=== PATIENT | female | born 1965 | race African-American/Black ===

== ENCOUNTER 2025-01-31 05:40 | Observation (INO) ==
--- NOTE | 2025-01-31 06:47 | Emergency Department Note ---
HPI - Abdominal Pain General Chief Complaint: Back Pain/Injury Stated Complaint: POSSIBLE KIDNEY STONE Source: patient, family () and medical record Mode of arrival: walk-in History of Present Illness HPI narrative: A 59-year-old who came in Friday with a week long history of back pain has been persistent since then and for the last 2 days has been going around to the other side of the lower back and around into her stomach, moving all around she says gets sharp shooting pains periodically has not had a bowel movement in over 2 weeks she states. No difficulty with urination no new vomiting does get nauseous at times currently not nauseated. Denies any fever, chills, ill contacts denies lifting anything heavy. Related Data Previous Rx's Medication Instructions Recorded ketorolac 10 mg tablet 10 mg PO Q8H PRN pain 4 days #12 01/28/25 tabs tizanidine 2 mg capsule 2 mg PO TID PRN muscle spast icity 01/28/25 #9 caplets Allergies Allergy/AdvReac Type Severity Reaction Status Date / Time acetaminophen (From Tylenol) Allergy Unknown Verified 01/31/25 06:02 Review of Systems Status of ROS 10 or more systems reviewed and unremark able except as noted in history and below Constitutional Reports: malaise and change in sleep pattern (secondary to pain); Denies: fever, chills, change in weight, fatigue or night sweats Eyes Denies: change in vision, blurry vision or light sensitivity Ears, nose, mouth, and throat Denies: throat pain, neck pain, throat swelling, difficulty swallowing, hoarseness, mouth pain, swelling of lips/tongue or dry mouth Cardiovascular Denies: chest pain, palpitations, edema, swelling of feet/ankles, lightheadedness or shortness of breath with exertion Respiratory Denies: shortness of breath, cough, wheezing, stridor, pain on inspiration or change in phlegm color Gastrointestinal Reports: abdominal pain, nausea, constipation, feeling full early and change in bowel habits; Denies: vomiting, coffee grounds in vomit, heartburn, diarrhea, bloating, belching or excessive passing of gas Genitourinary Reports: urinary incontinence; Denies: painful urination, urinary frequency, urinary urgency, blood in urine or difficulty voiding Musculoskeletal Reports: back pain and extremity pain (left knee, left ankle); Denies: neck pain, extremity swelling, joint pain, limited range of motion or joint swelling Integumentary/Breast Denies: rash, itching, redness, skin pain, skin tenderness, skin swelling, sores, new lesion, changing lesion or non-healing lesion Neurological Denies: headache, numbness in extremities, weakness in extremities, lack of coordination, dizziness, vertigo or confusion Psychiatric Denies: anxiety, mood swings, panic attacks, change in sleep pattern, hopelessness, loss of interest, irritability, paranoia, memory loss, difficulty concentrating, visual hallucinations, auditory hallucinations, tactile hallucinations, suicidal ideation or homicidal ideation Endocrine Denies: excessive urination, excessive thirst, fatigue, cold intolerance, excessive sweating, flushing, heat intolerance, deepening of the voice or change in body appearance Hematologic/Lymphatic Denies: easy bruising, easy bleeding or enlarged lymph nodes Allergic/Immunologic Denies: hives, throat swelling, tongue swelling, facial swelling, wheezing or itchy eyes PFSH PFSH Medical History Breast cancer HTN (hypertension) Surgical History History of hysterectomy Social History Smoking status: never smoker What is your current living situation: I presently have a place to live Feel stressed/tense/nervous/anxious/difficulty sleeping: to some extent Life stressor details: back and abdominal pain Exam Constitutional: normal general appearance, no apparent distress (appears to be extremely uncomfortable while sitting upright or with any mov), abnormal body habitus (overweight), no limitations and alert Vital Signs - 24 hr 01/31/25 05:52 Pulse Rate 78 Respiratory Rate 17 Blood Pressure 108/76 Pulse Oximetry 100 Oxygen Delivery Me thod Room Air HENMT: normocephalic, head/scalp atraumatic, hearing grossly normal bilaterally, external ears normal, EACs normal, TMs abnormal, nasal mucous membranes normal, external nose normal, oral mucous membranes abnormal and oropharynx abnormal Eyes: PERRL, EOMs intact bilaterally, conjunctivae normal, no scleral icterus, papilledema noted and periorbital findings normal Neck/C-Spine: trachea midline, cervical spine nontender, cervical full ROM noted, supple, no meningeal signs, thyroid normal and no carotid bruits Lymph: no lymphadenopathy noted and no lymphedema noted Chest: inspection of chest normal and palpation of chest normal Respiratory: breath sounds equal bilaterally, normal respiratory effort, clear to auscultation bilaterally, no wheezes, no rales, no retractions and no use of accessory muscles Cardiovascular: normal heart rate noted, regular rhythm noted, no gallop, no murmur, no JVD, no clicks and peripheral pulses 2+ throughout Gastrointestinal: abdomen abnormal to inspection, abdomen soft to palpation, tender to palpation, tender to percussion, distended, abnormal bowel sounds noted (hyperactive bowel sounds), hepatosplenomegaly noted, no masses, no pulsatile mass, no ascites and no hernia Genitourinary: no CVA tenderness and bladder normal to palpation Back/Pelvis: spine abnormal to inspection, no thoracic spine tenderness, no lumbar spine tenderness, no paraspinal muscle tenderness noted (left lumbar) and straight leg raise negative bilaterally moderate to severe tenderness noted to the thoracic and lumbar spine without radiation into the lower extremities. No urinary issues, saddle parathesia, or other symptoms reported. The paraspinal muscle are extremely tender to palpation with the left greater than right. 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 Psychiatry: Mental Status Exam documented within this Exam's Psych section mental status grossly normal, oriented x3, thought process normal, cooperative, affect normal, psychomotor activity normal and memory normal Feel stressed/tense/nervous/anxious/difficulty sleeping: to some extent Life stressor details: back and abdominal pain Skin: skin color normal, no rash, no lesions, no ecchymosis noted, no wounds, no lacerations, skin turgor abnormal Reports (tenting), no jaundice, no petechiae, nails abnormality noted and no alopecia Course Course Hospital Course: Patient went from a pain scale of 10 out of 10 to a pain scale of 1 out of 10 after the Toradol and simethicone waiting the CT results come back at turnover to will wetzel for further disposition after the CTs returned Vital Signs Vital signs: Vital Signs Pulse Rate 78 01/31/25 05:52 Respiratory Rate 17 01/31/25 05:52 Blood Pressure 108/76 01/31/25 05:52 Pulse Oximetry 100 01/31/25 05:52 Oxygen Delivery Method Room Air 01/31/25 05:52 Pulse Rate 78 01/31/25 05:52 Respiratory Rate 17 01/31/25 05:52 Blood Pressure 108/76 01/31/25 05:52 Pulse Oximetry 100 01/31/25 05:52 Oxygen Delivery Method Room Air 01/31/25 05:52 MDM - Abdominal Pain MDM Narrative Medical decision making narrative: Patient started off of the left flank lower back pain groin about a week no bowel movement in 2 weeks: Constipation, gastroenteritis, back strain lumbar strain, renal calculi, colic, colitis, ACS, UTI, hydronephrosis Differential Diagnosis Differential diagnosis: Likely abdominal pain, acute appendicitis, calculus of kidney, constipation, diverticulitis, endometriosis, gastroenteritis, pancreatitis and small bowel obstruction Medical Records Attestation: I reviewed the patient's medical records. Lab Data Attestation: I reviewed the patient's lab results. Labs: Lab Results 01/31/25 Range/Units 06:45 WBC 4.7 (4.3-9.3) K/uL RBC 3.8 L (4.00-5.50) M/uL Hgb 11.3 L (12.5-15.8) gm/dL Hct 34.8 L (35.9-46.7) % MCV 90.9 (81.0-93.7) fl MCH 29.6 (27.6-32.2) pg MCHC 32.6 L (33.1-35.3) g/dl RDW 12.9 (11.4-14.2) % Plt Count 272 (152-353) K/uL MPV 7.7 (6.9-10.8) fl Gran % 59.9 (47.8-71.3) % Lymph % (Auto) 26.3 (20.0-43.0) % [place] % (Auto) 7.8 (3.6-9.8) % Eos % (Auto) 5.4 H (0.4-2.8) % Baso % (Auto) 0.6 (0.1-0.85) Lymph # (Auto) 1.2 (1.1-3.1) [place] # (Auto) 0.4 L (1.1-3.1) Eos # (Auto) 0.3 H (0.0-0.2) Baso # (Auto) 0.0 (0.0-0.1) Absolute Gran (auto) 2.8 (2.3-6.0) Sodium 142 (136-145) mmol/L Potassium 3.7 (3.6-5.2) mmol/L Chloride 106.0 (98-107) mmol/L Carbon Dioxide 30 (21-32) mmol/L Anion Gap 6.0 (4-14) mEq/L BUN 11 (7-18) mg/dL Creatinine 0.9 (0.6-1.3) mg/dL Estimated GFR 73.6 (>59.9) Glucose 90 (70-110) mg/dL Lactic Acid 1.0 (0.27-1.43) mmol/L Calcium 8.4 L (8.5-10.1) mg/dL Total Bilirubin 0.18 (0.0-1.0) mg/dL AST 12 L (15-37) U/L ALT 10 L (30-65) U/L Alkaline Phosphatase 79 (50-136) U/L Total Protein 6.8 (6.4-8.2) g/dL Albumin 2.7 L (3.4-5.0) g/dL Urine Color Yellow (STRAW/YELL.) Urine Appearance Clear (CLEAR) Ur Specific [place] 1.025 (1.001-1.035) Urine Protein Negative (NEGATIVE) Urine Glucose (UA) Normal (NORMAL) Urine Ketones Negative (NEGATIVE) Urine Occult Blood Negative (NEG - TRACE) Urine Nitrite Negative (NEGATIVE) Urine Bilirubin Negative (NEGATIVE) Urine Urobilinogen Normal (NORMAL) Ur Leukocyte Esterase Negative (NEGATIVE) Fluid pH 7.0 (5 - 9) Urine Opiates Screen Neg. (NEGATIVE) Urine Methadone Screen Neg. (NEGATIVE) Barbiturate Screen Neg. (NEGATIVE) Ur Phencyclidine Scrn Neg. (NEGATIVE) Amphetamines Screen Neg. (NEGATIVE) U Benzodiazepines Scrn Neg. (NEGATIVE) Urine Cocaine Screen Neg. (NEGATIVE) U Marijuana (THC) Screen Neg. (NEGATIVE) Imaging Data Imaging ordered: CT scan - abdomen and CT scan - pelvis Attestation: I have reviewed the pertinent imaging results. Discharge Plan Discharge Patient Disposition: Admitted As Observation Condition: Improved Clinical Impression: Constipation by delayed colonic transit, Acute lumbosacral myofascial strain Time of Disposition: 07:56
[2025-01-31] MEDS: ORPHENADRINE CITRATE 30 MG/ML VIAL IVP ONE (06:54)
[2025-01-31] MEDS: KETOROLAC 30 MG/ML INJ VIAL IVP ONE (06:54)
[2025-01-31] MEDS: SIMETHICONE 80 MG TAB PO ONE (06:54)
[2025-01-31] MEDS: 0.9 % SODIUM CHLORIDE 1000 ML 1,000 ML IV ONE (06:54)
[2025-01-31 07:01] LABS: Specific Gravity Urine 1.025 (1.001-1.035); Urine Appearance CLEAR (CLEAR); Urine Blood NEGATIVE (NEG - TRACE); Urine Color YELLOW (STRAW/YELL.); Urine Urobilinogen Normal (NORMAL)
[2025-01-31 07:02] LABS: Basophils%(Percent) Auto 0.6 (0.1-0.85); Eosinophils#(Absolute)Auto 0.3 (0.0-0.2); Eosinophils%(Percent) Auto 5.4 % (0.4-2.8); Granulocytes % - Auto 59.9 % (47.8-71.3); Granulocytes#(Absolute)- Auto 2.8 (2.3-6.0); Hematocrit 34.8 % (35.9-46.7); Mean Corpuscular Volume 90.9 fl (81.0-93.7); Monocytes #(Absolute)- Auto 0.4 (1.1-3.1); Monocytes %(Percent)- Auto 7.8 % (3.6-9.8); Platelet Count 272 K/uL (152-353); Potassium 3.7 mmol/L (3.6-5.2); White Blood Count 4.7 K/uL (4.3-9.3)
[2025-01-31 07:19] LABS: Amphetamine Screen Urine NEG. (NEGATIVE); Cannabinoid Screen Urine NEG. (NEGATIVE); Cocaine Screen Urine NEG. (NEGATIVE); Methadone Screen Urine NEG. (NEGATIVE); Opiate Screen Urine NEG. (NEGATIVE)
[2025-01-31] MEDS ORDERED: polyethylene glycoL 3350 17 GM POWD.PACK ONE (09:45)
[2025-01-31] MEDS: polyethylene glycoL 3350 17 GM POWD.PACK PO ONE (09:51)
--- NOTE | 2025-01-31 11:15 | History & Physical Report ---
H&P: HPI History of Present Illness Chief complaint: Abdominal Pain Narrative: 59 y/o female with approx 3 day hx of lower back pain, abdominal pain, and intermittent nausea. Pt originally with ED evaluation on Friday with discharge home. She was placed on conservative management for lower back pain. Patient returned this morning to the ED with worsening flank and lower abdominal pain. She denied prior / similar episodes. She described her abdominal pain as constant, progressive, and "ache". ED evaluation for acute abdomen completed to include CT suggesting obstipation w/o obstruction. Review of Systems Status of ROS 10 or more systems reviewed and unremark able except as noted in history and below Constitutional Reports: malaise and change in sleep pattern (secondary to pain); Denies: fever, chills, change in weight, fatigue or night sweats Eyes Denies: change in vision, blurry vision or light sensitivity Ears, nose, mouth, and throat Denies: throat pain, neck pain, throat swelling, difficulty swallowing, hoarseness, mouth pain, swelling of lips/tongue, dry mouth or vertigo Cardiovascular Denies: chest pain, palpitations, edema, swelling of feet/ankles, lightheadedness or shortness of breath with exertion Respiratory Denies: shortness of breath, cough, wheezing, stridor, pain on inspiration or change in phlegm color Gastrointestinal Reports: abdominal pain, nausea, constipation, feeling full early and change in bowel habits; Denies: vomiting, coffee grounds in vomit, heartburn, diarrhea, bloating, belching, excessive passing of gas or difficulty swallowing Genitourinary Reports: urinary incontinence; Denies: painful urination, urinary frequency, urinary urgency, blood in urine or difficulty voiding Musculoskeletal Reports: back pain and extremity pain (left knee, left ankle); Denies: neck pain, extremity swelling, joint pain, limited range of motion or joint swelling Integumentary/Breast Denies: rash, itching, redness, skin pain, skin tenderness, skin swelling, sores, new lesion, changing lesion or non-healing lesion Neurological Denies: headache, numbness in extremities, weakness in extremitie s, lack of coordination, dizziness, vertigo or confusion Psychiatric Denies: anxiety, mood swings, panic attacks, change in sleep pattern, hopelessness, loss of interest, irritability, paranoia, memory loss, difficulty concentrating, visual hallucinations, auditory hallucinations, tactile hallucinations, suicidal ideation or homicidal ideation Endocrine Denies: excessive urination, excessive thirst, fatigue, cold intolerance, excessive sweating, flushing, heat intolerance, deepening of the voice or change in body appearance Hematologic/Lymphatic Denies: easy bruising, easy bleeding or enlarged lymph nodes Allergic/Immunologic Denies: hives, throat swelling, tongue swelling, facial swelling, wheezing or itchy eyes PFSH PFSH Medical History Breast cancer HTN (hypertension) Surgical History History of hysterectomy Social History Smoking status: never smoker What is your current living situation: I presently have a place to live Feel stressed/tense/nervous/anxious/difficulty sleeping: to some extent Life stressor details: back and abdominal pain Meds Home Medications and Allergies Home Medications Medication Instructions Recorded Confirmed Type albuterol sulfate 90 mcg/actuation 1 puff inhalation Q 4H PRN 01/31/25 01/31/25 History aerosol inhaler shortness of breath or wheez ing amitriptyline 50 mg tablet 50 mg PO BEDTIME 01/31/25 0 01/31/25 History gabapentin 600 mg tablet 600 mg PO BID 01/31/2501/31 History hydrochlorothiazide 25 mg tablet 25 mg PO DAILY 01/31/25 History Allergies Allergy/AdvReac Type Severity Reaction Status Date / Time acetaminophen (From Tylenol) Allergy Unknown Verified 01/31/25 06:02 Exam Constitutional: normal general appearance, no apparent distress, average body habitus and alert Vital Signs - 24 hr 01/31/25 05:52 01/31/25 10:13 Pulse Rate 78 52 L Respiratory Rate 17 18 Blood Pressure 108/76 134/77 Pulse Oximetry 100 99 Oxygen Delivery Me thod Room Air HENMT: normocephalic, head/scalp atraumatic, oral mucous membranes normal and oropharynx normal Eyes: PERRL, EOMs intact bilaterally, conjunctivae normal and no scleral icterus Neck/C-Spine: visual inspection normal, trachea midline, supple and no carotid bruits Lymph: no lymphadenopathy noted Chest: inspection of chest normal Respiratory: breath sounds equal bilaterally, normal respiratory effort, clear to auscultation bilaterally, no wheezes, no rales, no retractions, no use of accessory muscles and chest percussion normal Cardiovascular: normal heart rate noted, regular rhythm noted, no gallop, no rub, no murmur and peripheral pulses 2+ throughout Gastrointestinal: no masses, no pulsatile mass and no ascites mild diffuse abdominal tenderness, no guarding, no rebound Genitourinary: no CVA tenderness, bladder normal to palpation and no inguinal lymphadenopathy Back/Pelvis: spine normal to inspection, no thoracic spine tenderness, no lumbar spine tenderness and thoracic spine ROM normal Extremities: normal to inspection, normal to palpation, no tenderness and full ROM 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 Continued IVF NS at maint 2. Zofran per protocols 3. Toradol PRN for pain per protocol 4. Advance diet as tolerated Qualifiers: Abdominal location: generalized Qualified Code(s): R10.84 - Generalized abdominal pain Code(s): R10.9 - Unspecified abdominal pain (2) Constipation: Assessment and Plan: Pt noted with moderate constipation on CT AB/PEL - no obstruction PLAN: 1. Lactulose BID 2. Continued to monitor I&Os Qualifiers: Constipation type: unspecified constipation type Qualified Code(s): K59.00 - Constipation, unspecified Code(s): K59.00 - Constipation, unspecified Plan SEE ABOVE Results Labs Labs: CBC 01/31/25 Range/Units 06:45 WBC 4.7 (4.3-9.3) K/uL RBC 3.8 L (4.00-5.50) M/uL Hgb 11.3 L (12.5-15.8) gm/dL Hct 34.8 L (35.9-46.7) % Plt Count 272 (152-353) K/uL Gran % 59.9 (47.8-71.3) % Lymph % (Auto) 26.3 (20.0-43.0) % [place] % (Auto) 7.8 (3.6-9.8) % Eos % (Auto) 5.4 H (0.4-2.8) % Baso % (Auto) 0.6 (0.1-0.85) Lymph # (Auto) 1.2 (1.1-3.1) [place] # (Auto) 0.4 L (1.1-3.1) Eos # (Auto) 0.3 H (0.0-0.2) Baso # (Auto) 0.0 (0.0-0.1) Absolute Gran (auto) 2.8 (2.3-6.0) CMP 01/31/25 06:45 Sodium 142 Potassium 3.7 Chloride 106.0 Carbon Dioxide 30 BUN 11 Creatinine 0.9 Glucose 90 Calcium 8.4 L Liver Function 01/31/25 Range/Units 06:45 Total Bilirubin 0.18 (0.0-1.0) mg/dL AST 12 L (15-37) U/L ALT 10 L (30-65) U/L Alkaline Phosphatase 79 (50-136) U/L Albumin 2.7 L (3.4-5.0) g/dL Urine 01/31/25 06:45 Urine Color Yellow Urine Appearance Clear Ur Specific [place] 1.025 Urine Protein Negative Urine Glucose (UA) Normal Pulse Oximetry Attestation: I personally reviewed and interpreted this pulse oximetry as follows: Imaging Imaging ordered: CT scan - abdomen Attestation: I have reviewed the pertinent imaging results. Radiologist's impression: Constipation, nothing acute
[2025-01-31] MEDS ORDERED: ALBUTEROL SULFATE INH PRN (12:00)
[2025-01-31] MEDS: PANTOPRAZOLE SODIUM 40 MG TABLET.DR PO SCH (12:11)
[2025-01-31] MEDS: 0.9 % SODIUM CHLORIDE 1000 ML 1,000 ML IV SCH (12:12)
[2025-01-31] MEDS: LACTULOSE 20 GM/30 ML SOLUTION PO SCH (21:04)
[2025-01-31] MEDS: AMITRIPTYLINE HCL 10 MG TABLET PO SCH (21:04)
[2025-01-31] MEDS: GABAPENTIN 300 MG CAPSULE PO SCH (21:05)
[2025-02-01] MEDS: LACTULOSE 20 GM/30 ML SOLUTION PO SCH
[2025-02-01 04:50] LABS: Basophils%(Percent) Auto 0.5 (0.1-0.85); Eosinophils#(Absolute)Auto 0.3 (0.0-0.2); Eosinophils%(Percent) Auto 7.8 % (0.4-2.8); Granulocytes % - Auto 51.3 % (47.8-71.3); Granulocytes#(Absolute)- Auto 2.1 (2.3-6.0); Hematocrit 31.3 % (35.9-46.7); Mean Corpuscular Volume 90.9 fl (81.0-93.7); Monocytes #(Absolute)- Auto 0.3 (1.1-3.1); Monocytes %(Percent)- Auto 6.7 % (3.6-9.8); Platelet Count 251 K/uL (152-353); White Blood Count 4.2 K/uL (4.3-9.3)
[2025-02-01 05:21] LABS: Potassium 3.5 mmol/L (3.6-5.2)
[2025-02-01] MEDS: ONDANSETRON HCL/PF 4 MG/2 ML VIAL INJ PRN (09:27)
[2025-02-01] MEDS: hydroCHLOROthiazide 25 MG TABLET PO SCH (09:28)
--- NOTE | 2025-02-01 09:31 | Progress Note ---
Progress Note: Subjective Subjective Interval history: Ms. Dent is still having abdominal pain this morning near umbilicus and epigastric. She has not had solid BM only liquid throughout the night. She states that she often goes weeks without a BM and then takes Miralax and other unspecificed laxatives at home. Exam Constitutional: normal general appearance, no apparent distress, average body habitus and alert Vital Signs - 24 hr 01/31/25 10:13 01/31/25 10:55 01/31/25 11:13 Temperature 98.0 F Pulse Rate 52 L Pulse Rate [Left B rachial] 72 72 Respiratory Rate 18 18 16 Blood Pressure 134/77 Blood Pressure [Le ft Arm] 138/80 138/80 Pulse Oximetry 99 98 98 Oxygen Delivery Me thod Room Air Room Air 01/31/25 16:00 01/31/25 19:30 01/31/25 23:24 Temperature 97.8 F 98.2 F 97.6 F Pulse Rate Pulse Rate [Left B rachial] 57 L 56 L 51 L Respiratory Rate 17 17 16 Blood Pressure Blood Pressure [Le ft Arm] 114/64 124/75 142/76 Pulse Oximetry 96 96 98 Oxygen Delivery Me thod Room Air Room Air Room Air 02/01/25 03:15 02/01/25 07:34 Temperature 98.6 F 97.7 F Pulse Rate Pulse Rate [Left B rachial] 53 L 51 L Respiratory Rate 18 16 Blood Pressure Blood Pressure [Le ft Arm] 108/70 141/78 Pulse Oximetry 96 94 L Oxygen Delivery Me thod Room Air Room Air HENMT: normocephalic, head/scalp atraumatic, oral mucous membranes normal and oropharynx normal Eyes: PERRL, EOMs intact bilaterally, conjunctivae normal and no scleral ic terus Neck/C-Spine: visual inspection normal, trachea midline, supple and no carotid bruits Lymph: no lymphadenopathy noted Chest: inspection of chest normal Respiratory: breath sounds equal bilaterally, normal respiratory effort, clear to auscultation bilaterally, no wheezes, no rales, no retractions, no use of accessory muscles and chest percussion normal Cardiovascular: normal heart rate noted, regular rhythm noted, no gallop, no rub, no murmur and peripheral pulses 2+ throughout Gastrointestinal: no masses, no pulsatile mass and no ascites mild diffuse abdominal tenderness, no guarding, no rebound Genitourinary: no CVA tenderness, bladder normal to palpation and no inguinal lymphadenopathy Back/Pelvis: spine normal to inspection, no thoracic spine tenderness, no lumbar spine tenderness and thoracic spine ROM normal Extremities: normal to inspection, normal to palpation, no tenderness and full ROM 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, no movement abnormality noted, no focal motor deficit noted, speech normal and GCS normal Psychiatry: mental status grossly normal, oriented x3, thought process normal, cooperative and affect normal Skin: skin color normal, no rash, no lesions and no ecchymosis noted Progress Note: Objective Labs Labs: CBC 02/01/25 Range/Units 04:30 WBC 4.2 L (4.3-9.3) K/uL RBC 3.5 L (4.00-5.50) M/uL Hgb 10.3 L (12.5-15.8) gm/dL Hct 31.3 L (35.9-46.7) % Plt Count 251 (152-353) K/uL Gran % 51.3 (47.8-71.3) % Lymph % (Auto) 33.7 (20.0-43.0) % [place] % (Auto) 6.7 (3.6-9.8) % Eos % (Auto) 7.8 H (0.4-2.8) % Baso % (Auto) 0.5 (0.1-0.85) Lymph # (Auto) 1.4 (1.1-3.1) [place] # (Auto) 0.3 L (1.1-3.1) Eos # (Auto) 0.3 H (0.0-0.2) Baso # (Auto) 0.0 (0.0-0.1) Absolute Gran (auto) 2.1 L (2.3-6.0) CMP 02/01/25 04:30 Sodium 142 Potassium 3.5 L Chloride 112.0 H Carbon Dioxide 29 BUN 12 Creatinine 1.0 Glucose 97 Calcium 7.7 L Liver Function 02/01/25 Range/Units 04:30 Total Bilirubin 0.17 (0.0-1.0) mg/dL AST 12 L (15-37) U/L ALT 10 L (30-65) U/L Alkaline Phosphatase 54 (50-136) U/L Albumin 2.2 L (3.4-5.0) g/dL Urine 01/31/25 06:45 Urine Color Yellow Urine Appearance Clear Ur Specific [place] 1.025 Urine Protein Negative Urine Glucose (UA) Normal Imaging CT scan - abdomen: Radiologist's impression: [address] [address] [address] Scan Report Signed Patient: Nida Dent MR#: [id number] : 1965 Acct:[id number] Age/Sex: 59 / F ADM Date: 01/31/25 Loc: ED Attending Dr: Ordering Physician: Yesica Oliva DO Date of Service: 01/31/25 Procedure(s): CT abdomen pelvis w con Accession Number(s): [id number] cc: Lisa Allen; Yesica Oliva DO~ EXAM: CT ABDOMEN AND PELVIS WITH CONTRAST HISTORY: abdominal and back painabdominal and back pain; COMPARISON: None. TECHNIQUE: Axial CT images were obtained through the abdomen and pelvis after the intravenous administration of contrast. Coronal reformatted images were included. Informed written consent was obtained prior to contrast administration. All CT scans at this facility use dose modulation, iterative reconstruction, and/or weight based dosing when appropriate to reduce radiation dose to as low as reasonably achievable. FINDINGS: LOWER THORAX: Mild hypoventilatory changes of the lung bases ABDOMEN: LIVER: Within normal limits. GALLBLADDER: Within normal limits. SPLEEN: Within normal limits. PANCREAS: Within normal limits. KIDNEYS: Tiny nonobstructive renal calculi ADRENAL GLANDS: Within normal limits. GI TRACT: Moderate colonic stool. No obstruction or inflammatory changes LYMPH NODES: No abnormally enlarged nodes. VESSELS: Within normal limits. PERITONEUM / RETROPERITONEUM: No free gas. PELVIS: BLADDER: Within normal limits. GENITALS: Uterus is absent. Ovaries are absent BONES: Multilevel degenerative changes in the spine. Slight anterolisthesis L5 on S1 IMPRESSION: No inflammatory changes in the abdomen or pelvis. Moderate colonic stool. THIS IS AN ELECTRONICALLY VERIFIED FINAL REPORT 01/31/2025 8:03 AM - Electronically signed by Rukhsana Castillo MD Dictated By: Rukhsana Castillo M.D. Signed By: Progress Note: A&P Assessment and Plan (1) Abdominal pain: Assessment and Plan: Pt with continued generalized abdominal pain w/ intermittent nausea PLAN: 1. Continued IVF NS at maint 2. Zofran per protocols 3. Toradol PRN for pain per protocol 4. Advance diet as tolerated Qualifiers: Abdominal location: generalized Qualified Code(s): R10.84 - Generalized abdominal pain (2) Constipation: Assessment and Plan: Pt noted with moderate constipation on CT AB/PEL - no obstruction PLAN: 1. Lactulose q6hrs 2. Miralax 17gm po tid 3. Colace 100mg po tid 4. Dulcolax 10mg Supp daily Qualifiers: Constipation type: unspecified constipation type Qualified Code(s): K59.00 - Constipation, unspecified Plan SEE ABOVE Fall Risk Details [place]reras Fall Scale Risk Level: Moderate Fall Risk Current Medications: Current Medications Albuterol (Albuterol Sulfate 8 Gm Hfa Inhaler) 1 puff INH Q4H PRN PRN Reason: Shortness Of Breath Or Wheezing Amitriptyline HCl (Amitriptyline Hcl 10 Mg Tablet) 50 mg PO BEDTIME [facility] Last Admin: 01/31/25 21:04 Dose: 50 mg Bisacodyl (Bisacodyl 10 Mg Supp.Rect) 10 mg SC DAILY TONYA Docusate Sodium (Docusate Sodium 100 Mg Capsule) 100 mg PO TID TONYA Gabapentin (Gabapentin 300 Mg Capsule) 600 mg PO BID [facility] Last Admin: 02/01/25 09:27 Dose: 600 mg Hydrochlorothiazide (Hydrochlorothiazide 25 Mg Tablet) 25 mg PO DAILY [facility] Last Admin: 02/01/25 09:28 Dose: 25 mg Sodium Chloride (Sodium Chloride) 1,000 mls @ 83 mls/hr IV CONT [facility] Last Admin: 02/01/25 00:20 Dose: 83 mls/hr Ketorolac Tromethamine (Ketorolac 30 Mg/Ml Inj Vial) 30 mg IVP Q8H PRN PRN Reason: MODERATE PAIN 5-7 Stop: 02/05/25 11:59 Lactulose (Lactulose 20 Gm/30 Ml Solution) 20 gm PO Q6H [facility] Ondansetron HCl (Ondansetron Hcl/Pf 4 Mg/2 Ml Vial) 4 mg INJ Q6H PRN PRN Reason: Nausea And Vomiting Last Admin: 02/01/25 09:27 Dose: 4 mg Ondansetron HCl (Ondansetron Hcl 4 Mg Tablet) 4 mg PO Q4H PRN PRN Reason: Nausea And Vomiting Pantoprazole Sodium (Pantoprazole Sodium 40 Mg Tablet.Dr) 40 mg PO DAILY TONAY Last Admin: 02/01/25 09:27 Dose: 40 mg Polyethylene Glycol (Polyethylene Glycol 3350 17 Gm Powd.Pack) 17 gm PO TID TONYA Potassium Chloride (Potassium Chloride 20 Meq Tab.Er.Prt) 20 meq PO ONCE ONE Stop: 02/01/25 08:20 Time Spent With Patient Time: Total time spent is greater than 50% in coordination of care (as documented) at patient's floor/unit and/or counseling patient:
[2025-02-01] MEDS: POTASSIUM CHLORIDE 20 MEQ TAB.ER.PRT PO ONE (11:16)
[2025-02-01] MEDS: bisacodyL 10 MG SUPP.RECT PR SCH (11:16)
[2025-02-01] MEDS: polyethylene glycoL 3350 17 GM POWD.PACK PO SCH (11:16)
[2025-02-01] MEDS: DOCUSATE SODIUM 100 MG CAPSULE PO SCH (15:43)
[2025-02-02] MEDS: KETOROLAC 30 MG/ML INJ VIAL IVP PRN (00:39)
[2025-02-02 07:23] LABS: Basophils%(Percent) Auto 0.1 (0.1-0.85); Eosinophils#(Absolute)Auto 0.3 (0.0-0.2); Eosinophils%(Percent) Auto 6.9 % (0.4-2.8); Granulocytes % - Auto 69.6 % (47.8-71.3); Granulocytes#(Absolute)- Auto 3.5 (2.3-6.0); Hematocrit 32.5 % (35.9-46.7); Mean Corpuscular Volume 91.4 fl (81.0-93.7); Monocytes #(Absolute)- Auto 0.3 (1.1-3.1); Monocytes %(Percent)- Auto 5.8 % (3.6-9.8); Platelet Count 265 K/uL (152-353)
[2025-02-02 07:36] VITALS: BP 120/64; PULSE 60; RESP 19; TEMP 97.6
--- NOTE | 2025-02-02 08:18 | Discharge Summary ---
DS: Providers Provider Date of admission: 01/31/25 09:03 Primary care physician: Lisa Allen DS: Diagnosis Discharge Diagnosis (1) Abdominal pain: Qualifiers: Abdominal location: generalized Qualified Code(s): R10.84 - Generalized abdominal pain (2) Constipation: Qualifiers: Constipation type: unspecified constipation type Qualified Code(s): K59.00 - Constipation, unspecified DS: Summary Hospital Course Hospital Course: Ms. Nida Dent was admitted on 01/31/25 after presenting to the ER with complai nts of lower back pain, abdominal pain, and intermittent nausea. CT of abdomen was completed and revealed moderate colonic stool. Labs and vital signs were unremarkable. Patient was admitted for further evaluation and treatment. Patient revealed she has intermittent episodes of constipation where she does not have a bowel movement for "weeks" at a time. This has been an ongoing issue for unknown length of time. She admitted to using laxatives at home. She was initially treated with IVFs and Lactulose without results. On 02/01/25 KUB was completed and revealed non obstructive, nonspecific bowel gas pattern. Lactulose was increased to Q6H in addition to Miralax TID, Docusate 100mg TID, Bisacodyl suppository, and Soap Suds enema. Patient had multiple bowel movements during the night and into this morning. Patient has improved and agreeable with discharge. She is to follow up with PCP in 1 week. Pharmacy recommended decreasing or discontinuing Amitriptyline as it may be contributing to her constipation. Patient instructed to discuss this with PCP at appointment and verbalized understanding. Status at Discharge Functional status at discharge: independent ambulation Overall status at discharge: patient is back to baseline Time Spent with Patient Time attestation: Total time spent providing and/or coordinating discharge services: 35 minutes Time spent: greater than 30 minutes Exam Constitutional: normal general appearance, no apparent distress, average body habitus and alert Vital Signs - 24 hr 02/01/25 12:00 02/01/25 15:37 02/01/25 19:35 Temperature 97.7 F 97.9 F 97.9 F Pulse Rate [Left B rachial] 65 51 L 72 Respiratory Rate 17 16 16 Blood Pressure [Le ft Arm] 109/73 125/80 107/67 Pulse Oximetry 98 94 L 96 Oxygen Delivery Me thod Room Air Room Air Room Air 02/01/25 23:16 02/02/25 03:18 02/02/25 07:35 Temperature 97.8 F 97.5 F L 97.6 F Pulse Rate [Left B rachial] 53 L 56 L 60 Respiratory Rate 18 17 19 Blood Pressure [Le ft Arm] 115/71 112/71 120/64 Pulse Oximetry 96 97 94 L Oxygen Delivery Me thod Room Air Room Air Room Air HENMT: normocephalic, head/scalp atraumatic, oral mucous membranes normal and oropharynx normal Eyes: PERRL, EOMs intact bilaterally, conjunctivae normal and no scleral icter us Neck/C-Spine: visual inspection normal, trachea midline, supple and no carotid bruits Lymph: no lymphadenopathy noted Chest: inspection of chest normal Respiratory: breath sounds equal bilaterally, normal respiratory effort, clear to auscultation bilaterally, no wheezes, no rales, no retractions, no use of accessory muscles and chest percussion normal Cardiovascular: normal heart rate noted, regular rhythm noted, no gallop, no rub, no murmur and peripheral pulses 2+ throughout Gastrointestinal: abdomen soft to palpation, nondistended, no masses, no pulsatile mass and no ascites Genitourinary: no CVA tenderness, bladder normal to palpation and no inguinal lymphadenopathy Back/Pelvis: spine normal to inspection, no thoracic spine tenderness, no lumb ar spine tenderness and thoracic spine ROM normal Extremities: normal to inspection, normal to palpation, no tenderness and full ROM 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3 L Eos # (Auto) 0.3 H Baso # (Auto) 0.0 Absolute Gran (auto) 3.5 Sodium 145 Potassium 4.0 Chloride 112.0 H Carbon Dioxide 26 Anion Gap 7.0 BUN 10 Creatinine 1.0 Estimated GFR 64.9 Glucose [address]cium 8[address] scan - abdomen: Attestation: I have reviewed the pertinent imaging results. Abdominal x-ray: Attestation: I have reviewed the pertinent imaging results. Discharge Plan Discharge Disposition: Home, Self-Care Condition: Improved Discharge Medications: New docusate sodium [Colace] 100 mg capsule 100 mg PO BID Qty: 60 0RF polyethylene glycol 3350 17 gram/dose powder 17 g PO DAILY Qty: 119 0RF Continued gabapentin 600 mg tablet 600 mg PO BID Patient Comments: TAKE 1 TABLET BY MOUTH TWICE DAILY amitriptyline 50 mg tablet 50 mg PO BEDTIME Patient Comments: TAKE 1 TABLET BY MOUTH AT BEDTIME ONCE DAILY hydrochlorothiazide 25 mg tablet 25 mg PO DAILY Patient Comments: TAKE 1 TABLET BY MOUTH ONCE DAILY FOR 30 DAYS albuterol sulfate 90 mcg/actuation HFA aerosol inhaler 1 puff INHALATION Q4H PRN (Reason: shortness of breath or wheezing) Patient Comments: INHALE 1 PUFF BY MOUTH EVERY 4 HOURS NEEDED tizanidine 2 mg capsule 2 mg PO TID PRN (Reason: back pain) ketorolac 10 mg tablet 10 mg PO Q8H PRN (Reason: back pain) Discharge Orders: Discharge Order (Routine); Ordered 02/02/25 Ordered By: Pio Eduardo Activity: increase activity as tolerated Diet: regular diet Interventions: Discharge Assessment Last Done: 02/02/25 09:14 MED/SURG & ICU Observation Charge Sheet Last Done: 02/02/25 09:19 Patient Instructions: Constipation (DC) Forms: Portal/Health Info Access Inst Follow-Ups: Lisa Allen [Primary Care Provider, Medical] - 02/23/25 3:15 pm Discharge Date/Time: 02/02/25 09:21 Discharge Comment: Follow-up with PCP in 1 week.
== END 2025-02-02 09:21 | disposition home or self-care (01) ==
LOC: ED 05:40 → MS 05:40
PROVIDERS: ADMIT Physician Assistant; ATTEND Physician Assistant
DX: K59.01 Slow transit constipation; Z85.3 Personal history of malignant neoplasm of breast; Z79.899 Other long term (current) drug therapy; I10 Essential (primary) hypertension; Z88.6 Allergy status to analgesic agent